=== PATIENT | female | born 1970 | race Hispanic/Latino ===

== ENCOUNTER 2017-02-08 09:43 | Emergency (ER) | payer SELFPAY ==
[2017-02-08] MEDS ORDERED: KETOROLAC TROMETHAMINE INJ 30 MG/ML VIAL IM ONE (09:56)
--- NOTE | 2017-02-08 09:56 | ED.PDOC ---
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 She stated that she had experienced same symptoms last year and she was prescribed OCP which controlled her bleeding. Timing/Duration: other - 2 months Quality: mild, cramping Onset Location: other - 2 months ago Radiation: none Activites at Onset: none Prior abdominal problems: none Sexual intercourse history: single partner Improving Factors: nothing Worsening Factors: nothing Associated Symptoms: other - uterine cramps Allergies/Adverse Reactions: Allergies NO KNOWN ALLERGY Allergy (Verified 08/04/15 20:59) Home Medications: Ambulatory Orders Ferrous Sulfate-Vitamin C-Foli [Folitab 500 525-500-0.8 mg] 1 tab PO ONCE #60 tab 02/08/17 Naproxen [Naprosyn] 500 mg PO BID #20 tab 02/08/17 Norgestimate-Ethinyl Estradiol [Sprintec 28] 1 tab PO DAILY #30 tab 02/08/17 Review of Systems - Review of Systems Constitutional: States: no symptoms reported EENTM: States: no symptoms reported Respiratory: States: no symptoms reported Cardiology: States: no symptoms reported Gastrointestinal/Abdominal: States: no symptoms reported Genitourinary: States: no symptoms reported Musculoskeletal: States: no symptoms reported Skin: States: no symptoms reported Neurological: States: no symptoms reported Endocrine: States: no symptoms reported Hematologic/Lymphatic: States: no symptoms reported Past Medical History (General) - Patient Medical History Hx Seizures: No Hx Stroke: No Hx Dementia: No Hx Asthma: Yes Hx of COPD: No Hx Cardiac Disorders: No Hx Congestive Heart Failure: No Hx Pacemaker: No Hx Hypertension: No Hx Thyroid Disease: No Hx Diabetes: No Hx Gastroesophageal Reflux: No Hx Renal Disease: No Hx Cancer: No Hx of HIV: No Hx Hepatitis C: No Hx MRSA: No Surgical History: other - BTL - Vaccination History Hx Tetanus, Diphtheria Vaccination: No Hx Influenza Vaccination: No Hx Pneumococcal Vaccination: No - Social History Hx Tobacco Use: No Hx Chewing Tobacco Use: No Hx Alcohol Use: No Hx Substance Use: No Hx Substance Use Treatment: No Hx Depression: No Hx Physical Abuse: No Hx Emotional Abuse: No Hx Suspected Abuse: No - Activities of Daily Living Patient Lives Alone: No - family - Female History Patient is a Female of Child Bearing Age (10 -59 yrs old): Yes Hx Last Menstrual Period: 12/08/16 Patient : No Family Medical History - Family History Mother Family History: Unknown Hx Family Hypertension: Yes - mom Hx Family Diabetes: Yes - mom Father Living Status: Still Living Hx Family Asthma: No Hx Family Congestive Heart Failure: No Hx Family Hypertension: Yes Hx Family Stroke: No Hx Cardiac Disease: No Hx Family Diabetes: No Hx Family Cancer: No Hx Family;Other: hernia- father Physical Exam - Physical Exam General Appearance: Alert, Comfortable, No apparent distress Eyes, Ears, Nose, Throat Exam: PERRL/EOMI, normal ENT inspection, TMs normal Neck: non-tender, full range of motion, supple Cardiovascular/Respiratory: no M/R/G, normal peripheral pulses, no JVD, normal breath sounds, no respiratory distress Gastrointestinal/Abdominal: normal bowel sounds, non tender, soft, no organomegaly, no pulsatile mass Pelvic Exam: external exam normal, no cerv. motion tender, active bleeding, other - no adnexal mass Extremity: normal range of motion, non-tender, normal inspection, no pedal edema , no calf tenderness Neurologic: no motor/sensory deficits, alert, normal mood/affect, oriented x 3 Skin Exam: normal color, warm/dry, cyanosis Lymphatic: no adenopathy Progress - Results/Orders Results/Orders: 02/08/17 09:55 Temperature 97.3 F L Pulse Rate [ 74 Left Brachial] Respiratory 16 Rate Blood Pressure 127/84 [Left Arm] O2 Sat by Pulse 98 Oximetry Laboratory Results WBC 6.1 K/mm3 (4.8-10.8) 02/08/17 10:10 RBC 4.40 M/mm3 (4.20-5.40) 02/08/17 10:10 Hgb 8.3 gm/dL (12.0-16.0) L 02/08/17 10:10 Hct 27.5 % (36.0-47.0) L 02/08/17 10:10 MCV 62.4 fl (81.0-99.0) L 02/08/17 10:10 MCH 18.8 pg (27.0-31.0) L 02/08/17 10:10 MCHC 30.3 g/dL (33.0-37.0) L 02/08/17 10:10 RDW 20.2 % (11.5-14.5) H 02/08/17 10:10 Plt Count 283 K/mm3 (130-400) 02/08/17 10:10 MPV 8.5 fl (7.40-10.4) 02/08/17 10:10 Absolute Neuts (auto) 3.40 K/uL (1.8-6.8) 02/08/17 10:10 Absolute Lymphs (auto) 1.90 K/uL (1.0-3.4) 02/08/17 10:10 Absolute Monos (auto) 0.50 K/uL (0.2-0.8) 02/08/17 10:10 Absolute Eos (auto) 0.20 K/uL (0.0-0.4) 02/08/17 10:10 Absolute Basos (auto) 0.10 K/uL (0.0-0.1) 02/08/17 10:10 Neutrophils % 55.5 % (42.0-78.0) 02/08/17 10:10 Lymphocytes % 30.6 % (20.0-50.0) 02/08/17 10:10 Monocytes % 9.0 % (2.0-9.0) 02/08/17 10:10 Eosinophils % 3.7 % (1.0-5.0) 02/08/17 10:10 Basophils % 1.2 % (0.0-2.0) 02/08/17 10:10 TSH 1.88 uIU/mL (0.34-5.60) 02/08/17 10:10 Serum HCG, Qual Negative 02/08/17 10:10 DISCUSS LAB RESULTS TO PATIENT AND EMPHASIZE IMPORTANCE OF CONSULT WITH FAMILY AND CONSUMER SCIENCES PROFESSOR. Departure - Departure Clinical Impression: Dysfunctional uterine bleeding, Anemia due to chronic blood loss Time of Disposition: 11:13 Disposition: Discharge to Home or Self Care Condition: Good Departure Forms: ED Discharge - Pt. Copy, Patient Portal Self Enrollment Prescriptions: Ferrous Sulfate-Vitamin C-Foli [Folitab 500 525-500-0.8 mg] 1 tab PO ONCE #60 tab Naproxen [Naprosyn] 500 mg PO BID #20 tab Norgestimate-Ethinyl Estradiol [Sprintec 28] 1 tab PO DAILY #30 tab Home Medications: Ambulatory Orders Ferrous Sulfate-Vitamin C-Foli [Folitab 500 525-500-0.8 mg] 1 tab PO ONCE #60 tab 02/08/17 Naproxen [Naprosyn] 500 mg PO BID #20 tab 02/08/17 Norgestimate-Ethinyl Estradiol [Sprintec 28] 1 tab PO DAILY #30 tab 02/08/17 Additional Instructions: NEED TO CALL UP FAMILY AND CONSUMER SCIENCES PROFESSOR IN AM PATIENT TO CALL FOR APPOINTMENT.
[2017-02-08 09:58] VITALS: TEMP 97.3
[2017-02-08 11:22] VITALS: BP 97/61; O2SAT 96
== END 2017-02-08 11:28 | disposition home or self-care (01) ==
LOC: ER 09:43
DX: N93.8 Other specified abnormal uterine and vaginal bleeding (principal); D50.0 Iron deficiency anemia secondary to blood loss (chronic); J45.909 Unspecified asthma, uncomplicated; Z79.899 Other long term (current) drug therapy
CPT/HCPCS: 36415; 84443; 84703; 85025; J1885

== ENCOUNTER 2017-09-26 21:01 | Inpatient (IN) | payer SELFPAY ==
[2017-09-26] MEDS ORDERED: predniSONE 20 MG TAB PO ONE (21:59)
--- NOTE | 2017-09-27 00:02 | ED.PDOC ---
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 The patient has had a history of dysfunctional uterine bleeding in the past and has required transfusion approximately 2 years ago for this problem. She was placed on hormones at that time and apparently did well for some period of time. She apparently discontinued her hormones about 6 or 8 months ago and had normal menstrual cycles for quite a few months until the last few months when she started bleeding fairly continuously. She presented to the emergency room tonight secondary to generalized weakness, shakiness, breaking out in a sweat, and getting dizzy. She had the similar symptoms when she became anemic before. she is a patient of Dr. Liu'carolyn but has not followed up with him for this problem. She has apparently had a pelvic ultrasound done with him in the past but we do not have the results of that. On the CT scan from 2 years ago she did have significant ovarian cysts that were likely related to her hormone dysfunction. Timing/Duration: unsure Severity: moderate Improving Factors: nothing Worsening Factors: nothing Associated Symptoms: diaphoresis, headaches, loss of appetite, malaise, shortness of breath Allergies/Adverse Reactions: Allergies NO KNOWN ALLERGY Allergy (Verified 08/04/15 20:59) Home Medications: Ambulatory Orders Ferrous Sulfate-Vitamin C-Foli [Folitab 500 525-500-0.8 mg] 1 tab PO ONCE #60 tab 02/08/17 Naproxen [Naprosyn] 500 mg PO BID #20 tab 02/08/17 Norgestimate-Ethinyl Estradiol [Sprintec 28] 1 tab PO DAILY #30 tab 02/08/17 Review of Systems - Review of Systems Constitutional: States: diaphoresis, malaise, weakness EENTM: States: no symptoms reported Respiratory: States: short of breath - with exertion Cardiology: States: syncope - near syncope Gastrointestinal/Abdominal: States: nausea Genitourinary: States: see HPI Musculoskeletal: States: no symptoms reported Skin: States: no symptoms reported Neurological: States: headache, weakness Endocrine: States: excessive sweating All other Systems: No Change from Baseline Past Medical History (General) - Patient Medical History Hx Seizures: No Hx Stroke: No Hx Dementia: No Hx Asthma: Yes Hx of COPD: No Hx Cardiac Disorders: No Hx Congestive Heart Failure: No Hx Pacemaker: No Hx Hypertension: No Hx Thyroid Disease: No Hx Diabetes: No Hx Gastroesophageal Reflux: No Hx Renal Disease: No Hx Cancer: No Hx of HIV: No Hx Hepatitis C: No Hx MRSA: No Surgical History: other - Vaccination History Hx Tetanus, Diphtheria Vaccination: No Hx Influenza Vaccination: No Hx Pneumococcal Vaccination: No - Social History Hx Tobacco Use: No Hx Chewing Tobacco Use: No Hx Alcohol Use: No Hx Substance Use: No Hx Substance Use Treatment: No Hx Depression: No Hx Physical Abuse: No Hx Emotional Abuse: No Hx Suspected Abuse: No - Female History Patient is a Female of Child Bearing Age (10 -59 yrs old): No Hx Last Menstrual Period: 12/08/16 Patient : No Family Medical History - Family History Mother Family History: Unknown Hx Family Hypertension: Yes - mom Hx Family Diabetes: Yes - mom Father Living Status: Still Living Hx Family Asthma: No Hx Family Congestive Heart Failure: No Hx Family Hypertension: Yes Hx Family Stroke: No Hx Cardiac Disease: No Hx Family Diabetes: No Hx Family Cancer: No Hx Family;Other: hernia- father Physical Exam - Physical Exam General Appearance: Alert, Other - the patient is pale. She is anxious. Eye Exam: bilateral normal Ears, Nose, Throat: hearing grossly normal, normal ENT inspection, normal pharynx Neck: full range of motion, supple, normal inspection Respiratory: chest non-tender, lungs clear, normal breath sounds, no respiratory distress, no accessory muscle use Cardiovascular/Chest: normal peripheral pulses, regular rate, rhythm, no edema Peripheral Pulses: radial,right: 2+, radial,left: 2+, dorsalis pedis,right: 2+, dorsalis pedis,left: 2+ Gastrointestinal/Abdominal: non tender, soft Rectal Exam: deferred, other - pelvic exam shows the bleeding does appear to be coming from the cervix area Back Exam: normal inspection, no CVA tenderness, no vertebral tenderness Extremity: normal range of motion, non-tender, normal inspection, no pedal edema , normal capillary refill Neurologic: diversional therapist's assistant II-XII nml as tested, alert, normal mood/affect, oriented x 3 Skin Exam: pallor Comments: Vital Signs - 24 hr 09/26/17 21:30 Temperature 99.1 F Pulse Rate [ 85 left] Respiratory 18 Rate Blood Pressure 142/81 [left] O2 Sat by Pulse 99 Oximetry Progress - Progress Progress: 09/27/17 00:03 the patient is a 47-year-old female presenting with recurrence of her dysfunctional uterine bleeding. The patient will be admitted secondary to symptomatic anemia. We will plan on transfusing HER 2 units of packed red blood cells. she is receiving 6 mg of estradiol by mouth to help with synchronization of the uterine lining. The initial plan will be to have her on this daily for approximately 3 days and then exchange operator to Provera for 10 days. We will try and transfuse her up to around 10 and 30 as she will bleed more when she sloughs the uterine lining with the Provera. She will need to follow up with Dr. Liu for a longer term plan for management of her dysfunctional uterine bleeding. Certainly a repeat pelvic ultrasound would be in line. she will also of course need treatment for her severe iron deficiency. - Results/Orders Results/Orders: Laboratory Tests 09/26/17 09/26/17 09/26/17 21:45 21:45 21:45 WBC 11.4 H RBC 3.75 L Hgb 7.7 L* Hct 25.0 L MCV 66.6 L MCH 20.5 L MCHC 30.8 L RDW 20.4 H Plt Count 376 MPV 8.0 Absolute Neuts (auto) 6.70 Absolute Lymphs (auto) 3.00 Absolute Monos (auto) 1.00 H Absolute Eos (auto) 0.50 H Absolute Basos (auto) 0.10 Neutrophils % 59.1 Lymphocytes % 26.3 Monocytes % 9.0 Eosinophils % 4.7 Basophils % 0.9 PT 10.5 INR 0.930 PTT (SP) 25.7 Sodium 139 Potassium 3.7 Chloride 109 Carbon Dioxide 25 Anion Gap 8.7 L BUN 10 Creatinine 0.58 L BUN/Creatinine Ratio 17.2 Random Glucose 95 Serum Osmolality 276.4 Calcium 8.7 Total Bilirubin 0.3 AST 14 ALT 11 Alkaline Phosphatase 86 Serum Total Protein 7.3 Albumin 3.9 Globulin 3.4 Albumin/Globulin Ratio 1.1 TSH 4.04 Serum HCG, Qual Patient ABO/Rh Antibody Screen Crossmatch 09/26/17 09/26/17 21:45 21:45 WBC RBC Hgb Hct MCV MCH MCHC RDW Plt Count MPV Absolute Neuts (auto) Absolute Lymphs (auto) Absolute Monos (auto) Absolute Eos (auto) Absolute Basos (auto) Neutrophils % Lymphocytes % Monocytes % Eosinophils % Basophils % PT INR PTT (SP) Sodium Potassium Chloride Carbon Dioxide Anion Gap BUN Creatinine BUN/Creatinine Ratio Random Glucose Serum Osmolality Calcium Total Bilirubin AST ALT Alkaline Phosphatase Serum Total Protein Albumin Globulin Albumin/Globulin Ratio TSH Serum HCG, Qual Negative Patient ABO/Rh A NEGATIVE Antibody Screen Negative Crossmatch See Detail Departure - Departure Clinical Impression: Symptomatic anemia, Dysfunctional uterine bleeding Disposition: Admit Patient Home Medications: Ambulatory Orders Ferrous Sulfate-Vitamin C-Foli [Folitab 500 525-500-0.8 mg] 1 tab PO ONCE #60 tab 02/08/17 Naproxen [Naprosyn] 500 mg PO BID #20 tab 02/08/17 Norgestimate-Ethinyl Estradiol [Sprintec 28] 1 tab PO DAILY #30 tab 02/08/17 Decision To Admit - Decistion To Admit Decision to Admit Reason: Medical Nature Decision to Admit Date: 09/27/17 Decision to Admit Time: 00:06
--- NOTE | 2017-09-27 00:37 | HP ---
SUPERVISING PHYSICIAN: Jose Eduardo Blank M.D. CHIEF COMPLAINT: Excessive vaginal bleeding, weakness and dizziness. HISTORY OF PRESENT ILLNESS: Ms. Mathews is a 47 year-old female that presented to the Emergency Room due to dysfunctional uterine bleeding that has been going on for well over 8 weeks. She does have a history of dysfunctional uterine bleeding in the past and was actually hospitalized on 10/24/15, and transfused 3 units of blood. She apparently had been replacing hormones for some time, but notes that within the last 6 weeks or so she stopped taking them because she did not feel like it was working. She started showing excessive bleeding. She reports that she goes through an average of 6 to 8 pads daily. It was not until this last week that she started feeling poorly with dizziness and weakness, and thus presented to the E. R. She is a patient of Dr. Cherry and apparently has been treated in the past for some fibroid tumors of the uterus but never actually followed through with the treatment plan. She denies any fevers, chills, nausea or vomiting. Initial CBC in the Emergency Department showed that she is severely anemic with an H&H of 7.7 and 25.0, platelet count was within normal limits. White count was slightly elevated at 11,400. Coagulation studies also showed to be within normal limits. She is now going to be admitted to the Medical/Surgical floor for ongoing treatment for dysfunctional uterine bleeding and transfused 3 units of packed red blood cells. PAST MEDICAL HISTORY: 1. Longstanding history of dysfunctional uterine bleeding treated with hormone therapy with poor compliance. 2. History of uterine fibroids. PAST SURGICAL HISTORY: 1. Bilateral tubal ligation. 2. Six previous vaginal deliveries. CURRENT MEDICATIONS: 1. Iron supplementation 1 tablet daily. 2. Naprosyn 500 mg b.i.d. 3. Hormone therapy with Sprintec 28 one tablet daily but stopped taking it approximately 6 weeks prior to admission. ALLERGIES: NO KNOWN DRUG ALLERGIES. FAMILY HISTORY: Mother of a cerebrovascular accident at age 60. Father is healthy and still living. She has 4 brothers and sister all of whom are healthy. SOCIAL HISTORY: The patient lives in [place]. She is . 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 She has no employment outside the house. She does not drink, smoke or use any drugs. REVIEW OF SYSTEMS: CONSTITUTIONAL: Some noted diaphoresis with malaise and general weakness. HEENT: No visual disturbances, headaches, sore throat, nasal congestion. CARDIOVASCULAR: No chest pains, palpitations or syncopal episodes. RESPIRATORY: She does have some shortness of breath with exertion. Denies any cough or hemoptysis. GASTROINTESTINAL: Has had some nausea but no vomiting or diarrhea. No hematemesis or hematochezia. GENITOURINARY: As noted in the History of Present Illness for heavy bleeding within the last 6 weeks utilizing in the last month OB pads frequently. She denies any discharge. She is unsure if she has any dysuria. MUSCULOSKELETAL: No joint aches or muscle strains. SKIN: No lesions or rashes. ENDOCRINE: No history of adrenal disease, diabetes or thyroid disease. NEUROLOGIC: No loss of consciousness. No syncopal episodes. She does have a headache. No loss of sensation or strength on any extremity. PHYSICAL EXAMINATION: VITAL SIGNS: Initial blood pressure in the Emergency Room was 142/81, pulse 85 , respirations 18, satting 99% on room air. She was afebrile at 99.1. Admission weight 90.76 kg. GENERAL: The patient appears to be tired but in no acute distress. Well hydrated. Well nourished. She has a very flat affect but speaks only Ecuadorean and interpretation was through her who was present who speaks excellent Ukrainian. HEENT: Tympanic membranes are clear bilaterally. Oropharynx was pink and moist with no lesions. NECK: Supple, non-tender. Full range of motion. CHEST: Lungs are clear to auscultation without any rhonchi, wheezing or rales. CARDIOVASCULAR: Regular rate and rhythm without appreciable murmurs, gallops, or rubs. ABDOMEN: Soft, non-tender with positive bowel sounds. PELVIC: Exam performed by the E. R. physician showed bleeding that appeared to be coming from the cervix area. EXTREMITIES: No clubbing, cyanosis or edema. NEUROLOGIC: Cranial nerves II-XII are grossly intact. Facial features were symmetrical. Extraocular movements are within normal limits. There was no nystagmus. She was alert and oriented times three. LABORATORY: CBC showed white count 11,400 with hemoglobin of 7.7, hematocrit 25.0 with a microcytic hypochromic RBC indices with platelet count at 376,000. Differential was within normal limits. Coagulation studies showed a normal PT and PTT. Chemistries showed normal electrolytes, BUN 10, creatinine 0.58, glucose at 95, calcium 8.7. Liver functions within normal limits. TSH was 4.04 , serum HCG was negative. Urine showed 100 protein, large amount of blood, nitrites were positive. Urine RBCs showed too numerous to count, 0 to 1 WBCs with 2+ bacteria. MICROBIOLOGY: Urine culture is pending. RADIOLOGY: Pelvic and intravaginal ultrasound is pending. ASSESSMENT: 1. Dysfunctional uterine bleeding previously on hormone therapy but the patient has been noncompliant with that therapy and has been having excessive bleeding for well over 6 to 8 weeks. 2. Symptomatic anemia requiring urgent transfusion but showing to be hemodynamically stable. 3. History of fibroid uterus. PLAN: The patient will be admitted to the hospital for transfusion of blood. Will transfuse 3 units of blood tonight per Pharmacy protocol. Will start her on Premarin 25 mg every 8 hours, 3 doses with 25 mg of Benadryl with each dose. Will plan to recheck her laboratory studies in the morning after the third unit. I will try to contact Dr. Liu and discuss the patient's case. At this time, she appears to be stable. Should she show any signs of instability hemodynamically, certainly we will need to contact Dr. Liu early prior to tomorrow and make arrangements for further treatment. Once she shows that she is stable and is no longer showing significant bleeding, anticipate discharging within 2 to 3 days and continue with outpatient evaluation and treatment. Again , should she show signs and symptoms of continued bleeding, will discuss transfer to a facility with gynecological services preferably with Dr. Liu marketing production coordinator, but until then will continue to monitor and treat appropriately. #[id number] [facility]
[2017-09-27] MEDS ORDERED: ACETAMINOPHEN 325 MG TAB PO ONE ×4 (00:38→15:36)
[2017-09-27] MEDS ORDERED: diphenhydrAMINE HCL 25 MG CAP PO ONE ×2 (00:38→21:30)
[2017-09-27] MEDS ORDERED: HYDROcodone 5MG/APAP 325MG 1 EA TAB PO PRN (01:01)
[2017-09-27] MEDS ORDERED: ACETAMINOPHEN 325 MG TAB PO PRN (01:01)
[2017-09-27] MEDS ORDERED: ONDANSETRON INJ 4 MG/2 ML VIAL IV PRN (01:01)
[2017-09-27] MEDS ORDERED: diphenhydrAMINE HCL 50 MG/ML VIAL IV ONE ×3 (01:05→15:38)
[2017-09-27] MEDS ORDERED: BACITRACIN 0.9 GM UD PCKT ONE (01:16)
[2017-09-27] MEDS ORDERED: ESTRADIOL TAB 1 MG PO ONE ×3 (01:28→23:59)
[2017-09-27] MEDS ORDERED: IV SET AND CAP CHANGE INJ INJ SCH (01:30)
[2017-09-27] MEDS ORDERED: SODIUM CHLORIDE 0.9% 500ML 500 ML IVS SCH ×2 (01:30→12:00)
[2017-09-27] MEDS: SODIUM CHLORIDE 0.9% (FLUSH) 10 ML SYG IV PRN ×2 (02:26→22:00)
[2017-09-27] MEDS ORDERED: WATER FOR INJ 10 ML VIAL INJ ONE ×2 (07:14→21:54)
[2017-09-27] MEDS: cefTRIAXone SODIUM 1 GM VIAL IM SCH (07:29)
[2017-09-27] MEDS ORDERED: CONJUGATED ESTROGENS 25 MG IV SCH ×2 (13:30→14:00)
[2017-09-27] MEDS ORDERED: SODIUM CHLORIDE 0.9% 50ML 50 ML ONE ×2 (14:19→20:34)
[2017-09-27] MEDS: CONJUGATED ESTROGENS IVPB SCH ×2 (14:20→22:00)
[2017-09-27] MEDS: SODIUM CHLORIDE 0.9% IVPB SCH ×2 (14:20→22:00)
[2017-09-27] MEDS: [UNRECOGNIZED DRUG - OTHER] PO SCH (14:48)
--- NOTE | 2017-09-27 17:56 | PCM.CORE ---
Physician DVT/VTE - Contraindications Medication Contraindication: Medical Contraindication - low H&H getting blood with DUB - Nurse DVT Assessment & Total Each Risk Factor Represents 1 Point: Age 41-60 Each Risk Factor is 1 Point: Obesity (BMI >25) For Women Only. Each Risk Factor Represents 1 Point: Oral Contraceptions or hormone replacement therapy DVT Assessment Score: 3 - 5 or more Very High Risk Treatments: Early Ambulation *, Sequential Compression Device
[2017-09-27] MEDS ORDERED: CONJUGATED ESTROGENS 25 MG ONE (20:35)
[2017-09-28] MEDS ORDERED: diphenhydrAMINE HCL 25 MG CAP PO ONE (05:30)
[2017-09-28] MEDS ORDERED: SODIUM CHLORIDE 0.9% 50ML 50 ML ONE (05:53)
[2017-09-28] MEDS ORDERED: CONJUGATED ESTROGENS 25 MG ONE (05:53)
[2017-09-28] MEDS ORDERED: WATER FOR INJ 10 ML VIAL INJ ONE (05:55)
[2017-09-28] MEDS: SODIUM CHLORIDE 0.9% (FLUSH) 10 ML SYG IV PRN (06:12)
[2017-09-28] MEDS: SODIUM CHLORIDE 0.9% IVPB SCH (06:12)
[2017-09-28] MEDS: CONJUGATED ESTROGENS IVPB SCH (06:12)
[2017-09-28] MEDS: cefTRIAXone SODIUM 1 GM VIAL IM SCH (07:00)
[2017-09-28] MEDS ORDERED: SODIUM CHL 0.9% 50ML MIN-BAG+ 50 ML IVPB ONE (08:05)
[2017-09-28] MEDS ORDERED: cefTRIAXone SODIUM 1 GM VIAL ONE (08:05)
[2017-09-28] MEDS: cefTRIAXone SODIUM 1 GM in SODIUM CHL 0.9% 50ML MIN-BAG+ 50 ML IVPB SCH (08:35)
[2017-09-28] MEDS: SODIUM CHLORIDE 0.9% (FLUSH) 10 ML SYG IV SCH ×3 (09:20→21:40)
[2017-09-28] MEDS: [UNRECOGNIZED DRUG - OTHER] PO SCH (09:20)
--- NOTE | 2017-09-28 14:49 | US ---
EXAM DESCRIPTION: Pelvis Transvaginal CLINICAL HISTORY: Hx uterine fibroid; Dysfunction Uterine Bleed COMPARISON: None. TECHNIQUE: Transabdominal and transvaginal sonographic images of the pelvis were acquired and submitted for review. FINDINGS: Uterus: * Orientation- anteverted * Size- 11.7 x 8.1 x 6.2cm * Mass- an anterior uterine leiomyoma is observed measuring 4.1x4.3 x 2.5 cm. A posterior fibroid is observed measuring 4.2 x 2.8 x 2.3 cm. * Cervix- small nabothian cysts are identified * Endometrium- normal and measures a 11 mm in thickness. Ovaries: * Size- right measures 2.4 x 1.9 x 1.3 cm; left measures 2.6 x 2.3 x 1.6 cm * Mass- None. * Vascular flow- Present. * Cyst- a small follicles are seen in both ovaries. Adnexa: Mass- None. Free fluid - None. IMPRESSION: Two 4 cm diameter uterine leiomyomas are observed. Exam is otherwise unremarkable. Electronically signed by: Zane Levy MD 09/28/2017 2:48 PM CDT
--- NOTE | 2017-09-28 19:58 | PN ---
DATE: 09/28/17 SUPERVISING PHYSICIAN: Eduardo Fleming M.D. SUBJECTIVE: The patient notes that she feels better today. She is having some cramping and notes that her uterine bleeding has slowed down compared to prior to admission. She still has to change pads at least 3 times a day. She remains afebrile and has received 3 units of packed red blood cells as well as continues today with Premarin 25 mg with no complications. OBJECTIVE: VITAL SIGNS: Temperature 98.1, pulse 67, blood pressure 106/60, respirations 18, satting 99% on room air. I's and O's show a negative balance of 510 with 2290 in, 2800 out. Weight is 90.7 kg. CHEST: Lungs are clear to auscultation bilaterally. HEART: Regular rate and rhythm. ABDOMEN: Soft. Just some mild tenderness in the suprapubic area. No rebound tenderness. Positive bowel sounds. EXTREMITIES: No clubbing, cyanosis or edema. NEUROLOGIC : She is alert and oriented times three. LABORATORY: H&H is showing improvement after 3 units of packed red blood cells and is up to 10.1 and 31.2 with platelet count 313,000. Differential shows to be within normal limits. Chemistries show normal electrolytes, BUN 17, creatinine 0.67. Liver functions are within normal limits. MICROBIOLOGY: Urine culture shows gram-negative rods. RADIOLOGY: Transvaginal ultrasound demonstrates two 4 cm in diameter uterine leiomyomas. Otherwise exam was unremarkable per radiology interpretation. ASSESSMENT: 1. Dysfunctional uterine bleeding secondary to two 4 cm leiomyomas as noted on transvaginal ultrasound of the uterus with the patient having been previously on hormone therapy but being noncompliant with therapy having stopped her therapy within the last 6 to 8 weeks resulting in excessive bleeding and a significant drop in her hemoglobin and hematocrit. 2. Symptomatic anemia requiring urgent transfusion showing to be hemodynamically stable and improved with 3 doses of Premarin with no complications. 3. History of fibroid uterus as noted on recent ultrasound. 4. Urinary tract infection with gram-negative rods with cultures pending. PLAN: I was able to contact Dr. Liu and discuss the patient's case. He was in agreement with current plan of care and agreed that the patient could just followup with him in the outpatient setting once she was found to be stable in regards to bleeding and continue with previous hormone therapy that he had already had her on with recommendations that she followup with him within the next week or so. Certainly as she has been shown to be noncompliant with medical treatment, surgical intervention would be warranted and he will see her in regards to this within the next week. Will continue with antibiotics and await culture results tomorrow to further target antibiotic therapy. She has been saline locked and is having adequate p.o. intake. Will continue to monitor her for any excessive bleeding and recheck her H&H in the morning with anticipation of discharging tomorrow if hemodynamically stable. Until then, will continue to follow and treat appropriately. Once discharged she will need followup with Dr. Liu as noted above for further treatment. #[id number] PAU[place]TTE
[2017-09-29 06:44] VITALS: TEMP 98.1
[2017-09-29] MEDS ORDERED: SODIUM CHL 0.9% 50ML MIN-BAG+ 50 ML IVPB ONE (08:08)
[2017-09-29] MEDS ORDERED: cefTRIAXone SODIUM 1 GM VIAL ONE (08:09)
[2017-09-29] MEDS: SODIUM CHLORIDE 0.9% (FLUSH) 10 ML SYG IV SCH (08:44)
[2017-09-29] MEDS: cefTRIAXone SODIUM 1 GM in SODIUM CHL 0.9% 50ML MIN-BAG+ 50 ML IVPB SCH (08:44)
[2017-09-29] MEDS: [UNRECOGNIZED DRUG - OTHER] PO SCH (08:44)
[2017-09-29 13:35] VITALS: BP 110/64; O2SAT 95
--- NOTE | 2017-09-29 14:10 | DS ---
SUPERVISING PHYSICIAN: Eduardo Fleming MD DISCHARGE DIAGNOSIS: 1. Dysfunctional uterine bleeding secondary to two 4 cm leiomyomas as noted on transvaginal ultrasound of the uterus with the patient having been previously on hormone therapy but being noncompliant with therapy having stopped her therapy within the last 6 to 8 weeks resulting in excessive bleeding and a significant drop in her hemoglobin and hematocrit. 2. Symptomatic anemia requiring urgent transfusion showing to be hemodynamically stable and improved with 3 doses of Premarin with no complications. 3. History of fibroid uterus as noted on recent ultrasound. 4. Urinary tract infection with gram-negative rods with cultures showing Escherichia coli. HISTORY OF PRESENT ILLNESS: This is a 47-year-old female patient who presented to the Emergency Room on the date of admission due to dysfunctional uterine bleeding that had been going on for over 8 weeks. She does have a history of dysfunctional uterine bleeding in the past and was actually hospitalized on and transfused 3 units of blood. She apparently had been replacing hormones for some time, but notes that within the last 6 weeks or so she stopped taking them because she did not feel like it was working. She started with excessive bleeding. She reported that she went through an average of 6 to 8 pads daily. This last week, she started feeling poorly with dizziness and weakness, and presented to the Emergency Room. She is a patient of Dr. Liu' s and apparently has been treated in the past for some fibroid tumors of the uterus, but never actually followed through with the treatment plan. She denies any fevers, chills, nausea or vomiting. Initial hemoglobin and hematocrit in the Emergency Room was 7.7 and 25.0 and platelet count was within normal limits. White count was slightly elevated at 11,400. Coagulation studies also showed to be within normal limits. She was admitted to the Medical /Surgical floor for ongoing treatment for dysfunctional uterine bleeding and transfused 3 units of packed red blood cells. HOSPITAL COURSE: Her transvaginal ultrasound per radiologic interpretation showed two 4 cm diameter uterine leiomyomas observed and after receiving 3 units of blood, her hemoglobin and hematocrit were up to 10.2 and 32.0. She was also found to have a urinary tract infection and the cultures grew E. coli. It was sensitive to Bactrim. She received Rocephin in the hospital. Awais Irvin contacted Dr. Liu and he recommended she receive some estradiol. She was given Estrace 6 mg p.o. times 3 doses. Her bleeding mostly subsided although she did have some pink-tinged urine. Lachelledeandre Rand, our professor of social work, initiated [facility] and she is awaiting income verification and she believes the patient will qualify for Medicaid. At this point, since her bleeding has mostly subsided and she has close followup with Dr. Liu, she can be discharged home today. DISCHARGE PLAN: The patient will be discharged home in stable condition. She has a followup appointment with Dr. Liu this Thursday on 10/02/17 at 10:15 AM. She is to resume her previous medications including her Sprintec. I have also given her 7 additional days of Bactrim for her urinary tract infection. She is to resume her previous diet. She is to return to the hospital or call Dr. Liu's office for any further problems or complications. She was strongly encouraged to follow through with her post hospital visits with Dr. Liu as she would continue to have the uterine bleeding problems unless she had close followup. DISCHARGE MEDICATIONS: 1. FoliTab. 2. Sprintec. 3. Bactrim DS. Dr. Fleming is the collaborating physician and available for consultation. #[id number] [facility]ITAL[facility]
[2017-09-29] MEDS ORDERED: INFLUENZA VIRUS VACC (ADULT) 0.5 ML SYG IM ONE (14:18)
== END 2017-09-29 15:31 | disposition home or self-care (01) | DRG 812 ==
LOC: ER 21:01 → OBSVTOIN 09-27 00:35 → MS 09-27 00:35
PROVIDERS: ADMIT Nurse Practitioner Family; ATTEND Nurse Practitioner Acute Care
PROC: 30233N1 Transfusion of Nonautologous Red Blood Cells into Peripheral Vein, Percutaneous Approach (ICD-10-PCS; principal; 2017-09-27)
DX: D64.9 Anemia, unspecified (principal); N39.0 Urinary tract infection, site not specified; N93.8 Other specified abnormal uterine and vaginal bleeding; D25.9 Leiomyoma of uterus, unspecified; T38.4X6A Underdosing of oral contraceptives, initial encounter; B96.20 Unspecified Escherichia coli [E. coli] as the cause of diseases classified elsewhere; Z91.128 Patient's intentional underdosing of medication regimen for other reason; Y92.009 Unspecified place in unspecified non-institutional (private) residence as the place of occurrence of the external cause; Z79.1 Long term (current) use of non-steroidal anti-inflammatories (NSAID); Z79.899 Other long term (current) drug therapy

== ENCOUNTER 2018-08-30 19:11 | Emergency (ER) | payer SELFPAY ==
[2018-08-30] MEDS ORDERED: NEO/POLY/HC OTIC SUSP 10 ML BTTL RIGHT_EAR ONE (19:20)
[2018-08-30] MEDS ORDERED: HYDROcodone 7.5MG/APAP 325MG 1 EA TAB PO ONE (19:21)
[2018-08-30] MEDS ORDERED: predniSONE 20 MG TAB PO ONE (19:21)
--- NOTE | 2018-08-30 19:23 | ED.PDOC ---
History of Present Illness - General Chief Complaint: ENT Problem Time Seen by Provider: 08/30/18 19:20 Source: patient Exam Limitations: no limitations, language barrier Additional Information: family is used to help translate. - History of Present Illness Initial Comments: the patient's a 48-year-old female presenting to the emergency room secondary to right ear pain for the last 3 weeks. The patient has a very obvious otitis externa with the ear canal almost swollen closed. Oropharynx is clear. No evidence of any abscess. No displacement of the cartilage of the ear. No mastoid tenderness. I'm unable to visualize the eardrum. No fever. She denies diabetes. Timing/Duration: other - 3 weeks Severity: moderate Improving Factors: nothing Worsening Factors: nothing Associated Symptoms: denies symptoms Allergies/Adverse Reactions: Allergies NO KNOWN ALLERGY Allergy (Verified 08/04/15 20:59) Home Medications: Ambulatory Orders Ferrous Sulfate-Vitamin C-Foli [Folitab 500 525-500-0.8 mg] 1 tab PO ONCE #60 tab 02/08/17 Norgestimate-Ethinyl Estradiol [Sprintec 28 0.25-35 mg-Mcg] 1 tab PO DAILY #30 tab 02/08/17 Sulfa/Trimeth 800/160 (Ds) Tab [Bactrim DS Tab] 0 ea PO BID #14 tab 09/29/17 Marcos/Poly/Hc Otic Susp [Cortisporin Otic Susp] 4 drop RIGHT_EAR Q6H #14 days 12/17 Tramadol HCl 50 mg PO Q6HRS PRN #30 tab 08/30/18 Review of Systems - Review of Systems Constitutional: States: no symptoms reported EENTM: States: ear pain, ear discharge Respiratory: States: no symptoms reported Cardiology: States: no symptoms reported Gastrointestinal/Abdominal: States: no symptoms reported Genitourinary: States: no symptoms reported Musculoskeletal: States: no symptoms reported Skin: States: no symptoms reported Neurological: States: no symptoms reported Endocrine: States: no symptoms reported Hematologic/Lymphatic: States: no symptoms reported All other Systems: No Change from Baseline Past Medical History (General) - Patient Medical History Hx Seizures: No Hx Stroke: No Hx Dementia: No Hx Asthma: Yes Hx of COPD: No Hx Cardiac Disorders: No Hx Congestive Heart Failure: No Hx Pacemaker: No Hx Hypertension: No Hx Thyroid Disease: No Hx Diabetes: No Hx Gastroesophageal Reflux: No Hx Renal Disease: No Hx Cancer: No Hx of HIV: No Hx Hepatitis C: No Hx MRSA: No - Vaccination History Hx Tetanus, Diphtheria Vaccination: No Hx Influenza Vaccination: No Hx Pneumococcal Vaccination: No - Social History Hx Tobacco Use: No Hx Chewing Tobacco Use: No Hx Alcohol Use: No Hx Substance Use: No Hx Substance Use Treatment: No Hx Depression: No Hx Physical Abuse: No Hx Emotional Abuse: No Hx Suspected Abuse: No - Female History Hx Last Menstrual Period: 12/08/16 Patient : No Family Medical History - Family History Mother Family History: Unknown Hx Family Hypertension: Yes - mom Hx Family Diabetes: Yes - mom Father Living Status: Still Living Hx Family Asthma: No Hx Family Congestive Heart Failure: No Hx Family Hypertension: Yes Hx Family Stroke: No Hx Cardiac Disease: No Hx Family Diabetes: No Hx Family Cancer: No Hx Family;Other: hernia- father Physical Exam - Physical Exam General Appearance: Alert, Comfortable, No apparent distress Eye Exam: bilateral normal Ears, Nose, Throat: normal pharynx, other - see history of present illness Neck: full range of motion, supple Respiratory: no respiratory distress, no accessory muscle use Cardiovascular/Chest: normal peripheral pulses, no edema Peripheral Pulses: radial,right: 2+, radial,left: 2+ Rectal Exam: deferred Extremity: normal range of motion, no pedal edema Neurologic: 4 h youth development specialist II-XII nml as tested, alert, normal mood/affect, oriented x 3 Skin Exam: normal color Progress - Progress Progress: 08/30/18 19:23 the patient's a 48-year-old female presenting to the emergency room secondary to 3 weeks of right otitis externa. The patient is started on Cortisporin Otic drops and she needs to continue these for 2 weeks. She was given a dose of hydrocodone and prednisone here as well. She'll be written for tramadol as well for as needed use for pain control. [id number] anti-inflammatory such as Aleve may also help with discomfort. She needs to follow back up with her primary care doctor towards the end of the week for reevaluation. ER warnings were given. Departure - Departure Clinical Impression: Otitis externa Qualifiers: Otitis externa type: unspecified type Chronicity: acute Laterality: right Qualified Code(s): H60.501 - Unspecified acute noninfective otitis externa, right ear Disposition: Discharge to Home or Self Care Condition: Fair Departure Forms: ED Discharge - Pt. Copy, Patient Portal Self Enrollment Instructions: DI for Otitis Externa Diet: regular diet Activity: increase activity as tolerated Referrals: Barry Gagnon MD [Primary Care Provider] - 1-2 Weeks Prescriptions: Tramadol HCl 50 mg PO Q6HRS PRN #30 tab PRN Reason: Moderate Pain Marcos/Poly/Hc Otic Susp [Cortisporin Otic Susp] 4 drop RIGHT_EAR Q6H #14 days Home Medications: Ambulatory Orders Ferrous Sulfate-Vitamin C-Foli [Folitab 500 525-500-0.8 mg] 1 tab PO ONCE #60 tab 02/08/17 Norgestimate-Ethinyl Estradiol [Sprintec 28 0.25-35 mg-Mcg] 1 tab PO DAILY #30 tab 02/08/17 Sulfa/Trimeth 800/160 (Ds) Tab [Bactrim DS Tab] 0 ea PO BID #14 tab 09/29/17 Marcos/Poly/Hc Otic Susp [Cortisporin Otic Susp] 4 drop RIGHT_EAR Q6H #14 days 12/17 Tramadol HCl 50 mg PO Q6HRS PRN #30 tab 08/30/18 Additional Instructions: the patient's a 48-year-old female presenting to the emergency room secondary to 3 weeks of right otitis externa. The patient is started on Cortisporin Otic drops and she needs to continue these for 2 weeks. She was given a dose of hydrocodone and prednisone here as well. She'll be written for tramadol as well for as needed use for pain control. [id number] anti-inflammatory such as Aleve may also help with discomfort. She needs to follow back up with her primary care doctor towards the end of the week for reevaluation. ER warnings were given. Print Language: Mexican
[2018-08-30 19:33] VITALS: BP 133/84; TEMP 99.7; O2SAT 99
== END 2018-08-30 19:48 | disposition home or self-care (01) ==
LOC: ER 19:11
DX: H60.501 Unspecified acute noninfective otitis externa, right ear (principal); J45.909 Unspecified asthma, uncomplicated

== ENCOUNTER 2018-12-01 18:47 | Emergency (ER) | payer SELFPAY ==
[2018-12-01] MEDS ORDERED: ONDANSETRON INJ 4 MG/2 ML VIAL IV ONE (19:14)
[2018-12-01] MEDS ORDERED: MORPHINE SULFATE INJ 10 MG/ML VIAL IV ONE (19:14)
[2018-12-01] MEDS ORDERED: PANTOPRAZOLE SODIUM IV 40 MG VIAL IV ONE (19:15)
--- NOTE | 2018-12-01 19:26 | ED.PDOC ---
History of Present Illness - General Chief Complaint: Abdominal Pain Stated Complaint: upper abdominal pain Time Seen by Provider: 12/01/18 19:13 Information Source: patient Exam Limitations: no limitations - History of Present Illness Initial Comments: EPIGASTRIC AND RUQ PAIN FOR SEVERAL MONTHS INTERMITTENTLY. THIS EPISODE STARTED DURING THE ATIF HOLIDAYS ALSO INTERMITTENTLY BUT FOR THE PAST TWO DAYS HAS BEEN RELENTLESS. THE PAIN IS SEVERE IN THE RUQ AND THE EPIGASTRIUM WITH RADIATION TO THE BACK, 9/10 AND COMES IN WAVES AND ASSOCIATED WITH NAUSEA AND VOMITING. Abdominal Pain Onset Location: RUQ, epigastric Pain Radiation: back Quality: severe, aching, burning, intermittent, throbbing Timing/Duration: 7-24 hours, getting worse Improving Factors: nothing Worsening Factors: movement Associated Symptoms: nausea/vomiting Review of Systems - Review of Systems Constitutional: States: malaise EENTM: States: no symptoms reported Respiratory: States: no symptoms reported Cardiology: States: no symptoms reported Gastrointestinal/Abdominal: States: abdominal pain, nausea, vomiting Genitourinary: States: no symptoms reported Musculoskeletal: States: no symptoms reported Skin: States: no symptoms reported Neurological: States: no symptoms reported Past Medical History (General) - Patient Medical History Hx Seizures: No Hx Stroke: No Hx Dementia: No Hx Asthma: Yes Hx of COPD: No Hx Cardiac Disorders: No Hx Congestive Heart Failure: No Hx Pacemaker: No Hx Hypertension: No Hx Thyroid Disease: No Hx Diabetes: No Hx Gastroesophageal Reflux: No Hx Renal Disease: No Hx Cancer: No Hx of HIV: No Hx Hepatitis C: No Hx MRSA: No Surgical History: other - BTL - Vaccination History Hx Tetanus, Diphtheria Vaccination: No Hx Influenza Vaccination: No Hx Pneumococcal Vaccination: No - Social History Hx Tobacco Use: No Hx Chewing Tobacco Use: No Hx Alcohol Use: No Hx Substance Use: No Hx Substance Use Treatment: No Hx Depression: No Hx Physical Abuse: No Hx Emotional Abuse: No Hx Suspected Abuse: No - Female History Patient is a Female of Child Bearing Age (10 -59 yrs old): Yes Hx Last Menstrual Period: 12/08/16 Patient : No Family Medical History - Family History Mother Family History: Unknown Hx Family Hypertension: Yes - mom Hx Family Diabetes: Yes - mom Father Living Status: Still Living Hx Family Asthma: No Hx Family Congestive Heart Failure: No Hx Family Hypertension: Yes Hx Family Stroke: No Hx Cardiac Disease: No Hx Family Diabetes: No Hx Family Cancer: No Hx Family;Other: hernia- father Physical Exam - Physical Exam General Appearance: Alert, Obvious distress, Well Developed, Well Groomed, Well Hydrated, Well Nourished Eyes, Ears, Nose, Throat Exam: normal ENT inspection Neck: non-tender, full range of motion, normal inspection Respiratory: lungs clear, normal breath sounds, no respiratory distress, no accessory muscle use, decreased breath sounds Cardiovascular/Chest: regular rate, rhythm, no edema, no gallop, no JVD, no murmur Peripheral Pulses: No deficit Gastrointestinal/Abdominal: no organomegaly, no pulsatile mass, tenderness - TO THE EPIGASTRIUM AND RUQ AREA Rectal Exam: deferred Back Exam: normal inspection, no CVA tenderness Extremity: normal range of motion, non-tender, normal inspection Neurologic: no motor/sensory deficits, normal mood/affect, oriented x 3 Skin Exam: normal color Lymphatic: no adenopathy Progress - Results/Orders Results/Orders: 12/01/18 20:13 Abdomen/Pelvis w/Contrast [CT] Stat 12/01/18 20:14 Hold Metformin x 48Hrs [id number] Laboratory Results - last 24 hr 12/01/18 12/01/18 19:25 19:25 WBC 7.0 RBC 4.65 Hgb 9.9 L Hct 31.7 L MCV 68.2 L MCH 21.2 L MCHC 31.2 L RDW 17.5 H Plt Count 310 MPV 8.5 Absolute Neuts (auto) 4.20 Absolute Lymphs (auto) 1.90 Absolute Monos (auto) 0.50 Absolute Eos (auto) 0.30 Absolute Basos (auto) 0.00 Neutrophils % 60.8 Lymphocytes % 26.7 Monocytes % 7.9 Eosinophils % 4.0 Basophils % 0.6 Normal RBC Morphology 1+hypochromia RBC Morphology 1+microcytosis Sodium 139 Potassium 3.7 Chloride 106 Carbon Dioxide 24 Anion Gap 12.7 BUN 10 Creatinine 0.48 L BUN/Creatinine Ratio 20.8 H Random Glucose 97 Serum Osmolality 276.5 Calcium 9.1 Total Bilirubin 0.3 AST 17 ALT 15 Alkaline Phosphatase 114 Serum Total Protein 7.9 Albumin 4.1 Globulin 3.8 H Albumin/Globulin Ratio 1.1 Amylase 57 Lipase 33 SHE FEELS MUCH BETTER. EATING ICE CHIPS. CT ABDOMEN IS PRETTY MUCH UNREMARKABLE. Departure - Departure Clinical Impression: Peptic ulcer disease Time of Disposition: 22:26 Disposition: Discharge to Home or Self Care Departure Forms: ED Discharge - Pt. Copy, Patient Portal Self Enrollment Instructions: Peptic Ulcers (DC) Diet: full liquid diet Prescriptions: Aluminum Hydroxide-Mag Carb [Gaviscon Extra Strength 254-237.5 mg/5Ml] 1 sahil PO Q6HRS #120 sahil Tramadol HCl 50 mg PO Q6HRS #20 tab Lansoprazole [Prevacid] 30 mg PO DAILY #30 cap Home Medications: Ambulatory Orders Aluminum Hydroxide-Mag Carb [Gaviscon Extra Strength 254-237.5 mg/5Ml] 1 sahil PO Q6HRS #120 sahil 12/01/18 Lansoprazole [Prevacid] 30 mg PO DAILY #30 cap 12/01/18 Tramadol HCl 50 mg PO Q6HRS #20 tab 12/01/18
[2018-12-01] MEDS ORDERED: ALUM & MAG HYDROX-SIMETHICONE 30 ML, LIDOCAINE VISCOUS 2% 15 ML PO ONE ×2 (19:45)
[2018-12-01] MEDS ORDERED: LIDOCAINE HCL 2% (MOUTH-THROAT) 15 ML UD ONE (19:52)
[2018-12-01] MEDS ORDERED: ALUM & MAG HYDROX-SIMETHICONE 30 ML UD ONE (19:52)
--- NOTE | 2018-12-01 21:02 | CT ---
EXAM DESCRIPTION: Abdomen/Pelvis w/Contrast CLINICAL HISTORY:48 years Female, ruq and epigastric pain Comparison: None TECHNIQUE: Contiguous axial images of the abdomen and pelvis were obtained followed by reconstruction images. This exam was performed according to our departmental dose-optimization program, which includes automated exposure control, adjustment of the mA and/or kV according to patient size and/or use of iterative reconstruction technique. FINDINGS: Lung bases: Lung bases are clear. Heart: Visualized heart is within normal limits in size. Liver:Unremarkable. No suspicious liver lesion. Gallbladder:Unremarkable. No gallstones. No gallbladder wall thickening or pericholecystic fluid. Spleen:Unremarkable Pancreas: Pancreas is unremarkable. Adrenal glands:Within normal limits. Kidneys/ureters:Within normal limits Bladder:Unremarkable. Pelvic organs: No acute abnormality Vascular structures: within normal limits Peritoneum: No free fluid. Lymph nodes: No abnormal lymph nodes. Stomach/small bowel/colon: Stomach is unremarkable. Small bowel is unremarkable. Colon is unremarkable. Appendix: No evidence of appendicitis. Bones: No acute osseous abnormality. Old right L3 transverse process fracture. Soft tissues: Unremarkable.. IMPRESSION: No acute intra-abdominal abnormality. Electronically signed by: Flo Maya DO 12/01/2018 9:01 PM [employer]
[2018-12-01] MEDS ORDERED: HYDROmorphone HCL INJ 2 MG/ML VIAL IV ONE (21:07)
[2018-12-01] MEDS ORDERED: FAMOTIDINE IV PREMIX 20 MG in PREMIX BAG 1 BAG IVPB ONE (21:49)
[2018-12-01] MEDS ORDERED: FAMOTIDINE IV PREMIX 50 ML IVPB ONE (22:03)
[2018-12-01] MEDS ORDERED: traMADol HCL 50 MG (ER DISP) # 6 TABS PO ONE (22:38)
[2018-12-01 22:52] VITALS: BP 132/84; TEMP 98; O2SAT 98
== END 2018-12-01 22:52 | disposition home or self-care (01) ==
LOC: ER 18:47
DX: K27.9 Peptic ulcer, site unspecified, unspecified as acute or chronic, without hemorrhage or perforation (principal); J45.909 Unspecified asthma, uncomplicated
CPT/HCPCS: 36415; 74177; 80053; 82150; 83690; 85025; J1170; J2270; J2405; J3490

== ENCOUNTER 2020-09-22 22:16 | Emergency (ER) | payer SELFPAY ==
[2020-09-22] MEDS ORDERED: DEXAMETHASONE INJ 10 MG/ML VIAL ONE (22:19)
[2020-09-22] MEDS ORDERED: HYDROcodone 5MG/APAP 325MG 1 EA TAB PO ONE (22:24)
[2020-09-22] MEDS ORDERED: DEXAMETHASONE INJ 10 MG/ML VIAL IV ONE (22:24)
[2020-09-22] MEDS ORDERED: IPRATROPIUM/ALBUTEROL 3 ML VIAL NEB ONE (22:44)
--- NOTE | 2020-09-22 22:48 | ED.PDOC ---
History of Present Illness - General Chief Complaint: Respiratory Problem Stated Complaint: SOB, coughing, hx asthma Time Seen by Provider: 09/22/20 22:17 Source: patient, RN notes reviewed, Vital Signs reviewed, RN/MD Exam Limitations: no limitations - History of Present Illness Initial Comments: This is a 50-year-old female with history of asthma presenting to the emergency department with cough, dyspnea onset yesterday. She has a known exposure to Covid, stating that her irdnkz-om-ipb tested positive 2 weeks ago, she was exposed 6 days ago. She reports subjective fevers. No vomiting or diarrhea. She also reports chest pain that worsens whenever she takes deep breaths or coughs Allergies/Adverse Reactions: Allergies NO KNOWN ALLERGY Allergy (Verified 08/30/18 19:32) Home Medications: Ambulatory Orders Aluminum Hydroxide-Mag Carb [Gaviscon Extra Strength 254-237.5 mg/5Ml] 1 sahil PO Q6HRS #120 sahil 12/01/18 Lansoprazole [Prevacid] 30 mg PO DAILY #30 cap 12/01/18 Tramadol HCl 50 mg PO Q6HRS #20 tab 12/01/18 Albuterol Inhaler [Ventolin Hfa Inhaler] 2 - 4 puff INH Q4H PRN #1 inh 09/23/20 Ibuprofen [Motrin] 600 mg PO Q6H PRN #20 tab 09/23/20 Ondansetron Odt [Zofran ODT] 4 - 8 mg PO Q6H PRN #15 tab 09/23/20 guaiFENesin W/CODEINE LIQ [Robitussin AC] 10 ml PO Q6H PRN #120 ml 09/23/20 predniSONE 40 mg PO DAILY 5 Days tab 09/23/20 Review of Systems - Review of Systems Constitutional: States: chills, fever, malaise EENTM: States: nose congestion. Denies: ear pain, throat pain Respiratory: States: cough, short of breath, wheezing. Denies: stridor Cardiology: States: chest pain. Denies: edema, palpitations, syncope Gastrointestinal/Abdominal: Denies: abdominal pain, diarrhea, nausea, vomiting Genitourinary: Denies: dysuria, hematuria, pain Musculoskeletal: Denies: back pain, joint pain, muscle pain, neck pain Neurological: States: no symptoms reported. Denies: tingling, weakness Endocrine: States: no symptoms reported Past Medical History (General) - Patient Medical History Hx Seizures: No Hx Stroke: No Hx Dementia: No Hx Asthma: Yes Hx of COPD: No Hx Cardiac Disorders: No Hx Congestive Heart Failure: No Hx Pacemaker: No Hx Hypertension: No Hx Thyroid Disease: No Hx Diabetes: No Hx Gastroesophageal Reflux: No Hx Renal Disease: No Hx Cancer: No Hx of HIV: No Hx Hepatitis C: No Hx MRSA: No Surgical History: noncontributory - Vaccination History Hx Tetanus, Diphtheria Vaccination: No Hx Influenza Vaccination: No Hx Pneumococcal Vaccination: No - Social History Hx Tobacco Use: No Hx Chewing Tobacco Use: No Hx Alcohol Use: No Hx Substance Use: No Hx Substance Use Treatment: No Hx Depression: No Hx Physical Abuse: No Hx Emotional Abuse: No Hx Suspected Abuse: No - Female History Hx Last Menstrual Period: 12/08/16 Patient : No Family Medical History - Family History Mother Family History: Unknown Hx Family Hypertension: Yes - mom Hx Family Diabetes: Yes - mom Father Living Status: Still Living Hx Family Asthma: No Hx Family Congestive Heart Failure: No Hx Family Hypertension: Yes Hx Family Stroke: No Hx Cardiac Disease: No Hx Family Diabetes: No Hx Family Cancer: No Hx Family;Other: hernia- father Physical Exam - Physical Exam General Appearance: Alert, Well Developed, Well Groomed, Well Hydrated, Well No urished, Other - Frequent forceful cough Ears, Nose, Throat: hearing grossly normal, normal ENT inspection Neck: non-tender, full range of motion, supple Respiratory: no accessory muscle use, other - Coughing frequently, mildly tachypneic, no wheezing noted Cardiovascular/Chest: normal peripheral pulses, regular rate, rhythm, no edema, no gallop, no JVD, no murmur Gastrointestinal/Abdominal: non tender, soft Extremity: normal range of motion, non-tender, normal inspection, no pedal edema Neurologic: no motor/sensory deficits, alert, normal mood/affect, oriented x 3 Skin Exam: normal color, warm/dry Progress - Progress Progress: 09/22/20 23:44 Rapid Covid nasal swab test is negative. She has a known closed contact with COVID positive individual and at increased risk with history of asthma. Given suboptimal sensitivity and early stage of disease, will send RVP. 09/23/20 12:17 Rechecked. Patient still having some pain with deep breathing and coughing. O2 sats 98% on room air. Discussed pending respiratory viral panel. Patient states she wants to wait until the results are back. 09/23/20 01:28 Rechecked. O2 sats remained stable. Discussed RVP results. Strict warnings given to return the emergency room for worsening chest pain, shortness of breath, changes mental status, intractable vomiting, or other concerns. Discussed plan to treat symptomatically. Recommended follow-up with PCP in 3 to 5 days for recheck. DDx: COVID-19, pneumonia, viral bronchitis, pleurisy MDM: 50-year-old female with history of asthma presenting with cough, body aches, chest wall pain, shortness of breath. She has a known Covid exposure approximately 1 week ago. Symptoms began yesterday. She had frequent cough and dyspnea on arrival. O2 sats were normal within the emergency department. Her chest x-ray is clear, labs today are reassuring. Her respiratory viral panel was positive for human rhinovirus, Covid negative. Will treat symptomatically. No occasion for admission. Brendon Burroughs DO [facility] #[id number] - Results/Orders Results/Orders: EKG reviewed personally by me at 2029. Sinus rhythm, rate of 90, normal axis, normal intervals, no ST segment elevations or depressions CLINICAL HISTORY: SOB, Cough, COVID - 19 contact COMPARISON: None. TECHNIQUE: XR CHEST 1 VIEW 09/22/2020 10:23 PM CDT FINDINGS: Cardiac silhouette is normal in size. Lungs are clear without consolidation, atelectasis, mass or edema. There is no pleural effusion. There is no pneumothorax. There are no acute osseous findings. IMPRESSION: Clear lungs. Electronically signed by: Scott Wynn MD 09/22/2020 11:18 PM Laboratory Tests 09/22/20 09/22/20 09/22/20 22:20 22:20 22:20 WBC 8.9 RBC 4.70 Hgb 11.3 L Hct 34.6 L MCV 73.7 L MCH 24.0 L MCHC 32.6 L RDW 18.3 H Plt Count 281 MPV 9.1 Absolute Neuts (auto) 5.90 Absolute Lymphs (auto) 2.00 Absolute Monos (auto) 0.70 Absolute Eos (auto) 0.20 Absolute Basos (auto) 0.10 Neutrophils % 66.2 Lymphocytes % 22.3 Monocytes % 7.7 Eosinophils % 2.7 Basophils % 1.1 Normal RBC Morphology Stain quality accept PTT (SP) 23.2 D-Dimer, Quantitative 259.0 Sodium 137 Potassium 3.3 L Chloride 103 Carbon Dioxide 23 Anion Gap 14.3 BUN 15 Creatinine 0.72 BUN/Creatinine Ratio 20.8 H Random Glucose 97 Serum Osmolality 274.6 L Calcium 8.8 Magnesium 1.9 Total Bilirubin 0.5 AST 16 ALT 13 Alkaline Phosphatase 85 LD Total 156 Creatine Kinase 146 H Troponin I C-Reactive Protein < 0.8 Serum Total Protein 8.1 Albumin 4.6 Globulin 3.5 Albumin/Globulin Ratio 1.3 09/22/20 22:20 WBC RBC Hgb Hct MCV MCH MCHC RDW Plt Count MPV Absolute Neuts (auto) Absolute Lymphs (auto) Absolute Monos (auto) Absolute Eos (auto) Absolute Basos (auto) Neutrophils % Lymphocytes % Monocytes % Eosinophils % Basophils % Normal RBC Morphology PTT (SP) D-Dimer, Quantitative Sodium Potassium Chloride Carbon Dioxide Anion Gap BUN Creatinine BUN/Creatinine Ratio Random Glucose Serum Osmolality Calcium Magnesium Total Bilirubin AST ALT Alkaline Phosphatase LD Total Creatine Kinase Troponin I 0.02 C-Reactive Protein Serum Total Protein Albumin Globulin Albumin/Globulin Ratio Rapid Covid nasal swab test is negative. Respiratory viral panel positive for human rhinovirus. COVID-19 negative. CLINICAL HISTORY: SOB, Cough, COVID - 19 contact COMPARISON: None. TECHNIQUE: XR CHEST 1 VIEW 09/22/2020 10:23 PM CDT FINDINGS: Cardiac silhouette is normal in size. Lungs are clear without consolidation, atelectasis, mass or edema. There is no pleural effusion. There is no pneumothorax. There are no acute osseous findings. IMPRESSION: Clear lungs. Electronically signed by: Scott Wynn MD 09/22/2020 11:18 PM Departure - Departure Clinical Impression: Viral upper respiratory tract infection with cough, Acute asthma, Acute chest wall pain, Rhinovirus infection Disposition: Discharge to Home or Self Care Condition: Good Departure Forms: ED Discharge - Pt. Copy, Patient Portal Self Enrollment Instructions: Viral Upper Respiratory Infection, Adult (DC), Pleuritic Chest Pain (DC) Diet: resume usual diet Activity: increase activity as tolerated Prescriptions: Ibuprofen [Motrin] 600 mg PO Q6H PRN #20 tab PRN Reason: Mild To Moderate Pain predniSONE 40 mg PO DAILY 5 Days tab guaiFENesin W/CODEINE LIQ [Robitussin AC] 10 ml PO Q6H PRN #120 ml PRN Reason: Cough Albuterol Inhaler [Ventolin Hfa Inhaler] 2 - 4 puff INH Q4H PRN #1 inh PRN Reason: Wheezing Ondansetron Odt [Zofran ODT] 4 - 8 mg PO Q6H PRN #15 tab PRN Reason: Nausea Home Medications: Ambulatory Orders Aluminum Hydroxide-Mag Carb [Gaviscon Extra Strength 254-237.5 mg/5Ml] 1 sahil PO Q6HRS #120 sahil 12/01/18 Lansoprazole [Prevacid] 30 mg PO DAILY #30 cap 12/01/18 Tramadol HCl 50 mg PO Q6HRS #20 tab 12/01/18 Albuterol Inhaler [Ventolin Hfa Inhaler] 2 - 4 puff INH Q4H PRN #1 inh 09/23/20 Ibuprofen [Motrin] 600 mg PO Q6H PRN #20 tab 09/23/20 Ondansetron Odt [Zofran ODT] 4 - 8 mg PO Q6H PRN #15 tab 09/23/20 guaiFENesin W/CODEINE LIQ [Robitussin AC] 10 ml PO Q6H PRN #120 ml 09/23/20 predniSONE 40 mg PO DAILY 5 Days tab 09/23/20 Print Language: Kyrgyz
[2020-09-22] MEDS ORDERED: ALBUTEROL INHALER 64 PUFF/8GM INH ONE (22:55)
[2020-09-22] MEDS: ALBUTEROL INHALER 64 PUFF/8GM INH SCH (23:00)
--- NOTE | 2020-09-22 23:20 | RAD ---
CLINICAL HISTORY: SOB, Cough, COVID - 19 contact COMPARISON: None. TECHNIQUE: XR CHEST 1 VIEW 09/22/2020 10:23 PM CDT FINDINGS: Cardiac silhouette is normal in size. Lungs are clear without consolidation, atelectasis, mass or edema. There is no pleural effusion. There is no pneumothorax. There are no acute osseous findings. IMPRESSION: Clear lungs. Electronically signed by: Scott Wynn MD 09/22/2020 11:18 PM CDT
[2020-09-23] MEDS ORDERED: KETOROLAC TROMETHAMINE INJ 30 MG/ML VIAL IV ONE (00:24)
[2020-09-23 01:36] VITALS: O2SAT 98
[2020-09-23 01:38] VITALS: BP 105/51; TEMP 98.2
[2020-09-23] MEDS: ALBUTEROL INHALER 64 PUFF/8GM INH SCH (07:13)
== END 2020-09-23 01:30 | disposition home or self-care (01) ==
LOC: ER 22:16
DX: J06.9 Acute upper respiratory infection, unspecified (principal); J45.909 Unspecified asthma, uncomplicated; R07.89 Other chest pain; B97.89 Other viral agents as the cause of diseases classified elsewhere; Z20.828 Contact with and (suspected) exposure to other viral communicable diseases
CPT/HCPCS: 71045; 80053; 82550; 83615; 83735; 84484; 85025; 85379; 85730; 86140; 87486; 87581; 87633; 87635; 93005; 94664; J1100; J1885

== ENCOUNTER 2021-01-02 12:33 | Emergency (ER) | payer SELFPAY ==
[2021-01-02] MEDS ORDERED: HYDROcodone 5MG/APAP 325MG 1 EA TAB PO ONE (12:56)
--- NOTE | 2021-01-02 15:19 | US ---
EXAM DESCRIPTION: Pelvis Transvaginal: Ultrasound. CLINICAL HISTORY: 50 years Female dysfunctional uterine bleeding. COMPARISON: CT scan abdomen and pelvis November 2018. TECHNIQUE: Endovaginal scanning; Crawford-scale and Doppler modes. FINDINGS: Uterus 10.5 x 6.7 x 5.8 cm 211.4 mL. Uterus not retroflexed.. Endometrial echogenic with thickness 10.4 mm. Myometrium heterogeneous. Hypoechoic subcapsular mass anterior fundus measuring 3.4 x 2.9 x 2.7 hypoechoic posterior body mass subcapsular measuring 3.3 x 2.7 x 3.4 cm. Cervix 3.7 and 7.4 mm cysts.. Cul-de-sac no fluid. Right ovary 1.9 x 1.6 x 0.9 cm 1.3 mL.. Normal waveform and color Doppler vascularity. No follicles or cysts. No adnexal mass or free fluid. Left ovary 3.5 x 3.7 x 2.6 cm 17.4 mL.. Normal waveform and color Doppler vascularity. 2.8 cm mass with thin septations, mostly anechoic with thin ferrari representing a cyst. Septations are not vascular. No adnexal mass or free fluid. IMPRESSION: 1. Left ovary enlarged. 2.8 cm mass with thin septations, mostly anechoic with thin ferrari representing a indeterminate cyst. Septations are not vascular. [facility] Best Practice guidelines: 2.8 cm indeterminate ovarian cyst. Multiple thin (<3 mm) septations. In any size any age: Recommend surgical evaluation. Reference: Radiology 2009;256(3):943-54. Right ovary is unremarkable. 2. Uterus is enlarged (over 200 mL) with normal orientation. At least 2 fibroids 3.4 and 3.3 cm diameter. Nabothian cysts in the cervix. Endometrial thickening with no fluid. No fluid in the cul-de-sac. Electronically signed by: Jose Chicas MD 01/02/2021 3:17 PM LITIGATION MANAGER
[2021-01-02] MEDS: ESTRADIOL TAB 1 MG PO ONE ×2 (16:35→16:55)
--- NOTE | 2021-01-02 16:35 | ED.PDOC ---
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 The patient has a history of menorrhagia in the past. She has required transfusions in the past. She does have known uterine fibroids. No syncope or near syncope. She has been having significant cramping. No rash. No new symptoms otherwise. No trauma. The patient has had a tubal in the past. Timing/Duration: constant, getting worse Severity: moderate Improving Factors: nothing Worsening Factors: nothing Associated Symptoms: denies symptoms Allergies/Adverse Reactions: Allergies NO KNOWN ALLERGY Allergy (Verified 08/30/18 19:32) Home Medications: Ambulatory Orders Aluminum Hydroxide-Mag Carb [Gaviscon Extra Strength 254-237.5 mg/5Ml] 1 sahil PO Q6HRS #120 sahil 12/01/18 Lansoprazole [Prevacid] 30 mg PO DAILY #30 cap 12/01/18 Tramadol HCl 50 mg PO Q6HRS #20 tab 12/01/18 Albuterol Inhaler [Ventolin Hfa Inhaler] 2 - 4 puff INH Q4H PRN #1 inh 09/23/20 Ibuprofen [Motrin] 600 mg PO Q6H PRN #20 tab 09/23/20 Ondansetron Odt [Zofran ODT] 4 - 8 mg PO Q6H PRN #15 tab 09/23/20 guaiFENesin W/CODEINE LIQ [Robitussin AC] 10 ml PO Q6H PRN #120 ml 09/23/20 predniSONE 40 mg PO DAILY 5 Days tab 09/23/20 Zndkesziieait-Jvqc-Kuibeuftva [Fioricet] 1 ea PO Q8H PRN #10 tab 01/02/21 Estrogens, Conjugated [Premarin] 2.5 mg PO DAILY #5 day 01/02/21 medroxyPROGESTERone TAB [Provera] 10 mg PO DAILY #10 day 01/02/21 Review of Systems - Review of Systems Constitutional: States: no symptoms reported EENTM: States: no symptoms reported Respiratory: States: no symptoms reported Cardiology: States: no symptoms reported Gastrointestinal/Abdominal: States: abdominal pain Genitourinary: States: see HPI Musculoskeletal: States: no symptoms reported Skin: States: no symptoms reported Neurological: States: no symptoms reported Endocrine: States: no symptoms reported All other Systems: No Change from Baseline Past Medical History (General) - Patient Medical History Hx Seizures: No Hx Stroke: No Hx Dementia: No Hx Asthma: Yes Hx of COPD: No Hx Cardiac Disorders: No Hx Congestive Heart Failure: No Hx Pacemaker: No Hx Hypertension: No Hx Thyroid Disease: No Hx Diabetes: No Hx Gastroesophageal Reflux: No Hx Renal Disease: No Hx Cancer: No Hx of HIV: No Hx Hepatitis C: No Hx MRSA: No Surgical History: other - Vaccination History Hx Tetanus, Diphtheria Vaccination: No Hx Influenza Vaccination: No Hx Pneumococcal Vaccination: No - Social History Hx Tobacco Use: No Hx Chewing Tobacco Use: No Hx Alcohol Use: No Hx Substance Use: No Hx Substance Use Treatment: No Hx Depression: No Hx Physical Abuse: No Hx Emotional Abuse: No Hx Suspected Abuse: No - Female History Hx Last Menstrual Period: 12/08/16 Patient : No Family Medical History - Family History Mother Family History: Unknown Hx Family Hypertension: Yes - mom Hx Family Diabetes: Yes - mom Father Living Status: Still Living Hx Family Asthma: No Hx Family Congestive Heart Failure: No Hx Family Hypertension: Yes Hx Family Stroke: No Hx Cardiac Disease: No Hx Family Diabetes: No Hx Family Cancer: No Hx Family;Other: hernia- father Physical Exam - Physical Exam General Appearance: Alert, Comfortable, No apparent distress Eye Exam: bilateral normal Ears, Nose, Throat: hearing grossly normal, normal pharynx Neck: full range of motion, supple Respiratory: lungs clear, normal breath sounds, no respiratory distress, no accessory muscle use Cardiovascular/Chest: normal peripheral pulses, regular rate, rhythm, no edema Peripheral Pulses: radial,right: 2+, radial,left: 2+ Gastrointestinal/Abdominal: non tender, soft Rectal Exam: deferred Back Exam: no CVA tenderness, no vertebral tenderness Extremity: normal range of motion, non-tender, normal inspection, no pedal edema, normal capillary refill 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 tested, alert, normal mood/affect, oriented x 3 Skin Exam: normal color Comments: Vital Signs - 24 hr 01/02/21 01/02/21 01/02/21 12:38 13:34 14:34 Temperature 97.8 F 97.8 F 97.8 F Pulse Rate [ 102 H 99 H 96 H left brachial] Respiratory 20 18 18 Rate Blood Pressure 157/92 146/83 114/73 [left brachial] O2 Sat by Pulse 99 98 99 Oximetry 01/02/21 15:00 Temperature 97.8 F Pulse Rate [ 89 left brachial] Respiratory 18 Rate Blood Pressure 129/80 [left brachial] O2 Sat by Pulse 100 Oximetry Progress - Progress Progress: 01/02/21 16:35 The patient is a 50-year-old female presents emergency room secondary to dysfunctional uterine bleeding. The patient does have 2 fibroids, each about 3.4 cm in diameter that are likely the source of the bleeding. The patient also has a 2.8 cm mass on the left ovary, consistent with a complicated indeterminate cyst, for which surgical evaluation is recommended. The patient needs to see a construction carpenters helper to talk about these 2 problems and their management in the long- term. She is not anemic at this point. In the short-term the patient is going to be written for 5 days of Premarin followed by 10 days of Provera to help provide what ever hormonal control we can for the dysfunctional uterine bleeding. The patient is being given contact information for construction carpenters helper in the area. Senior Speech Pathologist was used. ER warnings are given. kyara diaz [phone] - Results/Orders Results/Orders: Most consistent with an indeterminate cyst. Surgical evaluation is recommended. The uterus itself is enlarged and has 2 fibroids both about 3.4 cm in diameter. Pelvic ultrasound shows a left ovarian mass of 2.8 cm laboratory Tests 01/02/21 01/02/21 01/02/21 13:10 13:10 13:10 WBC 7.8 RBC 4.72 Hgb 11.6 L Hct 35.8 L MCV 75.8 L MCH 24.6 L MCHC 32.5 L RDW 17.7 H Plt Count 244 MPV 9.3 Absolute Neuts (auto) 6.60 Absolute Lymphs (auto) 0.70 L Absolute Monos (auto) 0.40 Absolute Eos (auto) 0.00 Absolute Basos (auto) 0.10 Neutrophils % 84.0 H Lymphocytes % 9.3 L Monocytes % 5.3 Eosinophils % 0.5 L Basophils % 0.9 Normal RBC Morphology Stain quality accept PT 9.9 INR 1.00 PTT (SP) 23.5 Sodium 136 Potassium 3.8 Chloride 104 Carbon Dioxide 23 Anion Gap 12.8 BUN 8 Creatinine 0.59 L BUN/Creatinine Ratio 13.6 Random Glucose 94 Serum Osmolality 270.0 L Lactic Acid Calcium 9.2 Total Bilirubin 0.9 AST 16 ALT 13 Alkaline Phosphatase 95 Serum Total Protein 8.0 Albumin 4.4 Globulin 3.6 H Albumin/Globulin Ratio 1.2 Amylase 58 Lipase 30 TSH 1.13 Serum HCG, Qual Urine Color Urine Appearance Urine pH Ur Specific [place] Urine Protein Urine Glucose (UA) Urine Ketones Urine Blood Urine Nitrite Urine Bilirubin Urine Urobilinogen Ur Leukocyte Esterase Urine RBC Urine WBC Ur Epithelial Cells Urine Bacteria 01/02/21 01/02/21 01/02/21 13:10 13:23 13:23 WBC RBC Hgb Hct MCV MCH MCHC RDW Plt Count MPV Absolute Neuts (auto) Absolute Lymphs (auto) Absolute Monos (auto) Absolute Eos (auto) Absolute Basos (auto) Neutrophils % Lymphocytes % Monocytes % Eosinophils % Basophils % Normal RBC Morphology PT INR PTT (SP) Sodium Potassium Chloride Carbon Dioxide Anion Gap BUN Creatinine BUN/Creatinine Ratio Random Glucose Serum Osmolality Lactic Acid 1.1 Calcium Total Bilirubin AST ALT Alkaline Phosphatase Serum Total Protein Albumin Globulin Albumin/Globulin Ratio Amylase Lipase TSH Serum HCG, Qual Negative Urine Color Yellow Urine Appearance Cloudy Urine pH 7.5 Ur Specific [place] 1.020 Urine Protein Negative Urine Glucose (UA) Negative Urine Ketones Negative Urine Blood Large H Urine Nitrite Positive H Urine Bilirubin Negative Urine Urobilinogen 0.2 Ur Leukocyte Esterase Trace H Urine RBC Tntc H Urine WBC 1-3 Ur Epithelial Cells 1-3 Urine Bacteria 4+ H Departure - Departure Clinical Impression: Fibroids, Dysfunctional uterine bleeding, Ovarian mass, left Disposition: Discharge to Home or Self Care Condition: Fair Departure Forms: ED Discharge - Pt. Copy, Patient Portal Self Enrollment Instructions: Uterine Fibroids (DC) Diet: regular diet Activity: increase activity as tolerated Referrals: Flo Liu MD [Primary Care Provider] - 1-2 Weeks Prescriptions: Mqfqqaexepipp-Hqhh-Ntxbgnsqqb [Fioricet] 1 ea PO Q8H PRN #10 tab PRN Reason: Pain Estrogens, Conjugated [Premarin] 2.5 mg PO DAILY #5 day medroxyPROGESTERone TAB [Provera] 10 mg PO DAILY #10 day Home Medications: Ambulatory Orders Aluminum Hydroxide-Mag Carb [Gaviscon Extra Strength 254-237.5 mg/5Ml] 1 sahil PO Q6HRS #120 sahil 12/01/18 Lansoprazole [Prevacid] 30 mg PO DAILY #30 cap 12/01/18 Tramadol HCl 50 mg PO Q6HRS #20 tab 12/01/18 Albuterol Inhaler [Ventolin Hfa Inhaler] 2 - 4 puff INH Q4H PRN #1 inh 09/23/20 Ibuprofen [Motrin] 600 mg PO Q6H PRN #20 tab 09/23/20 Ondansetron Odt [Zofran ODT] 4 - 8 mg PO Q6H PRN #15 tab 09/23/20 guaiFENesin W/CODEINE LIQ [Robitussin AC] 10 ml PO Q6H PRN #120 ml 09/23/20 predniSONE 40 mg PO DAILY 5 Days tab 09/23/20 Oqadcycacafso-Lctl-Lrufftgsut [Fioricet] 1 ea PO Q8H PRN #10 tab 01/02/21 Estrogens, Conjugated [Premarin] 2.5 mg PO DAILY #5 day 01/02/21 medroxyPROGESTERone TAB [Provera] 10 mg PO DAILY #10 day 01/02/21 Additional Instructions: The patient is a 50-year-old female presents emergency room secondary to dysfunctional uterine bleeding. The patient does have 2 fibroids, each about 3.4 cm in diameter that are likely the source of the bleeding. The patient also has a 2.8 cm mass on the left ovary, consistent with a complicated indeterminate cyst, for which surgical evaluation is recommended. The patient needs to see a construction carpenters helper to talk about these 2 problems and their management in the long-term. She is not anemic at this point. In the short-term the patient is going to be written for 5 days of Premarin followed by 10 days of Provera to help provide what ever hormonal control we can for the dysfunctional uterine bleeding. The patient is being given contact information for construction carpenters helper in the area. Senior Speech Pathologist was used. ER warnings are given. She will be written for some Fioricet for as needed use for pain control. Print Language: Malawian
[2021-01-02 16:52] VITALS: BP 141/99; TEMP 99.4; O2SAT 99
== END 2021-01-02 16:50 | disposition home or self-care (01) ==
LOC: ER 12:33
DX: N93.8 Other specified abnormal uterine and vaginal bleeding (principal); D25.9 Leiomyoma of uterus, unspecified; N83.8 Other noninflammatory disorders of ovary, fallopian tube and broad ligament; N88.8 Other specified noninflammatory disorders of cervix uteri; J45.909 Unspecified asthma, uncomplicated; Z98.51 Tubal ligation status; Z79.899 Other long term (current) drug therapy